=== PATIENT | male | born 1990 | race African-American/Black ===

== ENCOUNTER 2017-07-04 18:46 | Emergency (ER) | payer SELFPAY ==
[2017-07-04] MEDS ORDERED: cloNIDine HCl 0.1 MG TAB ONE (19:09)
[2017-07-04] MEDS ORDERED: Lisinopril 10 MG TAB ONE (19:12)
== END 2017-07-04 20:32 | disposition home or self-care (01) ==
LOC: NAV ERS 18:46
DX: I10 Essential (primary) hypertension (principal); J45.909 Unspecified asthma, uncomplicated
CPT/HCPCS: 99283

== ENCOUNTER 2020-01-30 15:27 | Emergency (ER) | payer SELFPAY | END 2020-01-30 15:45 | disposition home or self-care (01) | LOC: NAV ERS 15:27 | DX: H92.01 Otalgia, right ear (principal) | CPT/HCPCS: 99282 ==

== ENCOUNTER 2020-03-17 18:03 | Emergency (ER) | payer SELFPAY | END 2020-03-17 18:40 | disposition home or self-care (01) | LOC: NAV ERS 18:03 | DX: J30.9 Allergic rhinitis, unspecified (principal); H92.01 Otalgia, right ear | CPT/HCPCS: 99283 ==

== ENCOUNTER 2020-08-19 16:59 | Emergency (ER) | payer OTHER, SELFPAY ==
[2020-08-19] MEDS ORDERED: Albuterol Sulfate 2.5 mg/0.5 ml Neb ONE ×2 (17:12→17:13)
[2020-08-19] MEDS ORDERED: predniSONE 20 MG TAB ONE (17:12)
[2020-08-19] MEDS ORDERED: Ipratropium Bromide 2.5 ml Neb ONE (17:12)
== END 2020-08-19 17:49 | disposition home or self-care (01) ==
LOC: NAV ERS 16:59
DX: J45.901 Unspecified asthma with (acute) exacerbation (principal)
CPT/HCPCS: 94640; J7512; J7611

== ENCOUNTER 2021-02-14 17:34 | Emergency (ER) | payer SELFPAY ==
[2021-02-14] MEDS ORDERED: Lidocaine 1% (PF) 30 ML VIAL ONE (17:50)
[2021-02-14] MEDS ORDERED: TETANUS, DIPHTHERIA TOX,ADULT (TDVAX) 0.5 ML VIAL IM ONE (17:51)
[2021-02-14] MEDS ORDERED: Bacitracin 1 PK ONE (18:22)
== END 2021-02-14 18:32 | disposition home or self-care (01) ==
LOC: NAV ERS 17:34
DX: S51.811A Laceration without foreign body of right forearm, initial encounter (principal); W45.8XXA Other foreign body or object entering through skin, initial encounter
CPT/HCPCS: 12002; 90471; 90714; J2001

== ENCOUNTER 2021-02-24 15:08 | Emergency (ER) | payer SELFPAY | END 2021-02-24 15:50 | disposition home or self-care (01) | LOC: NAV ERS 15:08 | DX: S51.811D Laceration without foreign body of right forearm, subsequent encounter (principal); X58.XXXD Exposure to other specified factors, subsequent encounter ==

== ENCOUNTER 2021-05-31 15:15 | Emergency (ER) | payer SELFPAY | END 2021-05-31 15:50 | disposition home or self-care (01) | LOC: NAV ERS 15:15 | DX: H10.9 Unspecified conjunctivitis (principal); J45.909 Unspecified asthma, uncomplicated | CPT/HCPCS: 99283 ==

== ENCOUNTER 2021-06-16 11:14 | Emergency (ER) | payer SELFPAY ==
[2021-06-16 11:56] LABS: Bilirubin Negative (Negative); Blood, Urine Trace (Negative); Clarity Clear (Clear); Glucose, Urine (Dipstick) Negative (Negative); Ketone, Urine Negative (Negative); Leukocyte Negative (Negative); Nitrite Negative (Negative); Protein, Urine (Dipstick) Negative (Neg-Trace); Specific Gravity, Urine 1.025 (1.005-1.030); Urobilinogen 0.2 mg/dL (Less than 2); pH, Urine 5.5 (5.0-9.0)
[2021-06-16 11:58] LABS: Bacteria/HPF None Seen HPF (None Seen); RBC/HPF 0-3 HPF (0-3); Squamous Epithelial None Seen HPF (0-3); WBC/HPF None Seen HPF (0-3)
== END 2021-06-16 12:15 | disposition home or self-care (01) ==
LOC: NAV ERS 11:14
DX: R31.9 Hematuria, unspecified (principal); J45.909 Unspecified asthma, uncomplicated
CPT/HCPCS: 81003; 81015; 99283

== ENCOUNTER 2023-10-23 11:21 | Emergency (ER) | payer SELFPAY ==
[2023-10-23] MEDS ORDERED: Acetaminophen 500 MG TAB ONE (11:32)
[2023-10-23] MEDS ORDERED: Ibuprofen 200 MG TAB ONE (12:23)
== END 2023-10-23 13:01 | disposition home or self-care (01) ==
LOC: NAV ERS 11:21
DX: B34.9 Viral infection, unspecified (principal); Z20.822 Contact with and (suspected) exposure to COVID-19; J45.909 Unspecified asthma, uncomplicated; Z79.51 Long term (current) use of inhaled steroids
CPT/HCPCS: 87635; 87804; 99283